=== PATIENT | female | born 1990 | race American Indian/Alaskan Native ===

== ENCOUNTER 2017-07-07 11:40 | Emergency (ER) | payer SELFPAY ==
[2017-07-07 13:05] LABS: Bilirubin,Urine NEG (Negative); Blood,Urine NEG (Negative); Color,Urine Yellow (Yellow); Mucus,Urine FEW /HPF; Nitrite,Urine NEG (Negative); Protein,Urine <15 mg/dL mg/dL (Negative); Urobilinogen,Urine < 2.0 mg/dL (<2.0)
[2017-07-07 13:15] LABS: WBC,Urine < 1.0 /HPF (0.0-6.0)
[2017-07-07 13:16] LABS: HCG Qualitative,Urine Negative (Negative)
--- NOTE | 2017-07-07 14:50 | Emergency Department Report ---
Blank Doc - Documentation Documentation: Patient is a 36-year-old black female who is presenting with dysuria as well as vaginal discharge and itching. A urinalysis as well as a pelvic exam be performed an Accu-Chek area patient will be followed with [facility]
--- NOTE | 2017-07-07 16:43 | Emergency Department Report ---
ED Female HPI - General Chief complaint: Urogenital-Female Stated complaint: PELVIC PAIN/UTI Time Seen by Provider: 07/07/17 14:43 Source: patient Mode of arrival: Ambulatory Limitations: No Limitations - History of Present Illness Initial comments: This is a 26 y.o. female presents with vaginal discharge and itching for 4 days. States discharge is thin and white. Denies odor, frequency, urgency, abdominal pain, and back pain. She is concerned this may be a STD because she had recent exposure. Denies . MD Complaint: vaginal discharge, possible STD -: days(s) (4) Severity scale (0 -10): 0 Quality: other (itching on labia) Consistency: intermittent Improves with: none Worsens with: none Are you Now?: No Associated Symptoms: vaginal discharge, dysuria. denies: abdominal pain, nausea /vomiting, fever/chills, headaches, loss of appetite, hematuria, rash, shortness of breath, syncope - Related Data Sexually active: Yes Allergies Allergy/AdvReac Type Severity Reaction Status Date / Time No Known Allergies Allergy Unverified 07/07/17 12:27 ED Review of Systems ROS: Stated complaint: PELVIC PAIN/UTI Other details as noted in HPI Constitutional: denies: chills, fever Respiratory: denies: cough, shortness of breath, wheezing Cardiovascular: denies: chest pain, palpitations Gastrointestinal: denies: abdominal pain, nausea, diarrhea Genitourinary: dysuria, discharge (thin white). denies: urgency, frequency, hematuria, abnormal menses, dyspareunia Neurological: denies: headache, weakness, paresthesias ED Past Medical Hx - Past Medical History Previous Medical History?: No - Surgical History Past Surgical History?: Yes Additional Surgical History: Leep procedure - Social History Smoking Status: Never Smoker Substance Use Type: Alcohol ED Physical Exam - General Limitations: No Limitations - Respiratory Respiratory exam: Present: normal lung sounds bilaterally. Absent: respiratory distress - Cardiovascular Cardiovascular Exam: Present: regular rate, normal rhythm. Absent: systolic murmur, diastolic murmur, rubs, gallop - GI/Abdominal GI/Abdominal exam: Present: soft, normal bowel sounds - External exam: Present: normal external exam. Absent: erythema, swelling, lesions, lacerations, ecchymosis, bleeding Speculum exam: Present: normal speculum exam, vaginal discharge. Absent: erythema, cervical discharge, vaginal bleeding, foreign body, tissue, laceration Bi-manual exam: Present: normal bi-manual exam. Absent: cervical motion tendernes, adnexal tenderness, adnexal mass, uterine enlargement, uterine tenderness - Neurological Exam Neurological exam: Present: alert, oriented X3 - Skin Skin exam: Present: warm, dry, intact, normal color. Absent: rash ED Course Vital Signs 07/07/17 12:27 Temperature 97.9 F Pulse Rate 83 Respiratory 20 Rate Blood Pressure 115/72 O2 Sat by Pulse 100 Oximetry ED Medical Decision Making - Medical Decision Making This is a 26 y.o. female presents with vaginal discharge for 4 days. Patient was examined by me. Obtained HCG, UA, wet prep, and G/C, negative. G/C pending. Discussed results with patient. Discharged home in stable condition. Discussed prevention options. F/U with PCP or Health Department. Critical care attestation.: If time is entered above; I have spent that time in minutes in the direct care of this critically ill patient, excluding procedure time. ED Disposition Clinical Impression: Vaginal discharge Disposition: DC-01 TO HOME OR SELFCARE Is pt being admited?: No Does the pt Need Aspirin: No Condition: Stable Instructions: Vaginitis (ED) Additional Instructions: Continue safe sexual intercourse. Follow up with Primary Care Provider or health department. Referrals: [facility] [Outside] - 3-5 Days [facility] [Outside] - 3-5 Days [facility] [Outside] - 3-5 Days Forms: Work/School Release Form(ED) Time of Disposition: 16:48 Print Language: ISRAELI
[2017-07-07 16:58] VITALS: BP 112/71
== END 2017-07-07 17:01 | disposition home or self-care (01) ==
LOC: ED 11:40
DX: N89.8 Other specified noninflammatory disorders of vagina (principal)
CPT/HCPCS: 81001; 81025; 87210; 87591